=== PATIENT | female | born 1995 | race Hispanic/Latino ===

== ENCOUNTER 2018-10-31 02:28 | Emergency (ER) | payer SELFPAY ==
[~2018-10-31] VITALS: Ht 149.9 cm; Wt 54.4 kg
[2018-10-31 03:44] LABS: BILIRUBIN,URINE NEGATIVE (NEGATIVE); CLARITY,URINE CLOUDY (CLEAR); COLOR,URINE YELLOW (YELLOW); KETONES,URINE NEGATIVE (NEGATIVE); LEUKOCYTE ESTERASE ,URINE MODERATE (NEGATIVE); NITRITE,URINE NEGATIVE (NEGATIVE); PROTEIN,URINE DIPSTICK 2+ (NEGATIVE); URINE UROBILINOGEN 0.2 mg/dL (0.2 - 1)
[2018-10-31 04:18] LABS: BACTERIA,URINE MANY /HPF; EPITHELIAL CELLS,URINE FEW /LPF; RBC,URINE 21-50 /HPF (0-5); RENAL EPITHELIAL CELLS,URINE FEW; TRANSITIONAL EPI CELLS,URINE FEW; WBC,URINE (MAN) >50 /HPF (0-5)
[2018-10-31] MEDS ORDERED: PHENAZOPYRIDINE HCL 100 MG TAB PO ONE (04:30)
[2018-10-31] MEDS ORDERED: CEPHALEXIN 500 MG CAP PO SCH (04:30)
== END 2018-10-31 05:58 | disposition home or self-care (01) ==
LOC: EDBD 02:28 → ER 02:28
DX: R10.32 Left lower quadrant pain (principal); N30.91 Cystitis, unspecified with hematuria
CPT/HCPCS: 81001; 81025; 99283